=== PATIENT | female | born 1980 | race Caucasian/White ===

== ENCOUNTER 2022-03-05 11:26 | Outpatient (CLI) | payer MEDICAID, SELFPAY ==
[2022-03-05 14:00] LABS: Chloride* 107 mmol/L (96-114); Potassium* 3.7 mmol/L (3.6-5.1); Sodium* 140 mmol/L (135-149)
[2022-03-05 14:03] LABS: Blood Urea Nitrogen* 11 mg/dL (5-24); Carbon Dioxide* 22 mmol/L (20-32); Creatinine* 0.7 mg/dL (0.5-1.5); Estimated Glomerular Filt Rate 111 ml/min
[2022-03-05 14:04] LABS: Calcium* 8.8 mg/dL (8.4-10.6); Glucose* 108 mg/dL (60-115)
[2022-03-05 14:19] LABS: SARS PCR* POSITIVE SARS-CoV-2 (Negative)
== END 2022-03-05 11:27 | disposition home or self-care (01) ==
PROVIDERS: PCP Family Medicine; Visit Provider Nurse Practitioner Family
DX: U07.1 COVID-19 (principal); R50.9 Fever, unspecified; J02.9 Acute pharyngitis, unspecified; J11.1 Influenza due to unidentified influenza virus with other respiratory manifestations
CPT/HCPCS: 36415; 80048; 87635

== ENCOUNTER 2023-01-01 08:22 | Outpatient (CLI) | payer MEDICAID, SELFPAY | END 2023-01-01 08:23 | disposition home or self-care (01) | PROVIDERS: PCP Family Medicine; Referring Provider Family Medicine; Visit Provider Family Medicine | DX: Z00.00 Encounter for general adult medical examination without abnormal findings (principal); E66.9 Obesity, unspecified; E03.9 Hypothyroidism, unspecified; R53.83 Other fatigue; R73.01 Impaired fasting glucose; J45.30 Mild persistent asthma, uncomplicated; F41.9 Anxiety disorder, unspecified; M54.6 Pain in thoracic spine; F33.42 Major depressive disorder, recurrent, in full remission; G47.33 Obstructive sleep apnea (adult) (pediatric); G89.29 Other chronic pain; Z13.6 Encounter for screening for cardiovascular disorders | CPT/HCPCS: 80053; 80061; 84443 ==

== ENCOUNTER 2023-04-03 10:42 | Outpatient (CLI) | payer MEDICAID, SELFPAY ==
[2023-04-03 15:25] LABS: SARS PCR* Negative SARS-CoV-2 (Negative)
== END 2023-04-03 10:43 | disposition home or self-care (01) ==
LOC: KYNREF 10:43
PROVIDERS: PCP Family Medicine; Visit Provider Nurse Practitioner Family
DX: R50.9 Fever, unspecified (principal); R09.81 Nasal congestion
CPT/HCPCS: 87635

== ENCOUNTER 2023-04-16 13:53 | Outpatient (CLI) | payer MEDICAID, SELFPAY | END 2023-04-16 13:54 | disposition home or self-care (01) | PROVIDERS: PCP Family Medicine; Visit Provider Family Medicine | DX: E86.0 Dehydration (principal); E03.9 Hypothyroidism, unspecified; R53.83 Other fatigue; R11.10 Vomiting, unspecified | CPT/HCPCS: 80048; 84703 ==

== ENCOUNTER 2023-04-25 09:09 | Outpatient (CLI) | payer MEDICAID, SELFPAY | END 2023-04-25 09:10 | disposition home or self-care (01) | PROVIDERS: PCP Family Medicine; Visit Provider Nurse Practitioner Family | DX: I49.9 Cardiac arrhythmia, unspecified (principal); R53.83 Other fatigue; E03.9 Hypothyroidism, unspecified; E66.9 Obesity, unspecified; R42 Dizziness and giddiness | CPT/HCPCS: 80048; 84443; 85025 ==

== ENCOUNTER 2023-12-26 14:02 | Outpatient (CLI) | payer MEDICAID, SELFPAY ==
--- OUTSIDE RECORDS SUMMARY | 2023-12-26 14:11 | XMS_ITS | Clinical Summary ---
Author Organization [employer] [facility] Address [place], [place] [address] Care Team Providers Care Gluing Machine Operator Name Role Phone Unavailable Primary Care Provider Unavailabl e Allergies Active Allergy Reactions Criticality Noted Date Comments Fluticasone Propion-Salmeterol Rash 05/12 Iodinated Contrast Media 11/08/2010 Sulfa (Sulfonamide Antibiotics) 03/18 Medications Medication Sig Dispensed Refills Start Date End Date Status albuterol HFA (PROAIR HFA) 90 mcg/actuation inhalerIndications:Mi ld intermittent asthma, uncomplicated Inhale 2 Puffs by mouth every 6 hours if needed. 1 Inhaler 3 04/15/2017 Active triamcinolone 0.5% (ARISTOCORT) 0.5 % creamIndications:Rash Apply topically to affected area(s) 3 times daily. 454 g 07/18/2017 Active Active Problems Problem Noted Date Diagnosed Date Vaccine reaction 04/15/2017 Overview: Told not to have any more vaccines. 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 Hepatitis B Mild intermittent asthma 01/31/2009 Immunizations Name Administration Dates Next Due Hepatitis B, Unspecified 06/22/1998,05/22/1998 Family History Medical History Relation Name Comments Good Health Father Hypertension Mother Good Health Sister Relation Name Status Comments Father Alive Maternal Grandfather (Age 76) Mother Alive Paternal Grandmother (Age 78) [place] Sister Social History Tobacco Use Types Packs/Day Years Used Date Smoking Tobacco: Never Smokeless Tobacco: Never Tobacco Cessation:Counseling Given: Yes Alcohol Use Standard Drinks/Week Comments No 0 (1 standard drink = 0.6 oz pur e alcohol) Sex and Gender Information Value Date Recorded Sex Assigned at Not on file Gender Identity Not on file Sexual Orientation Not on file Obstetrics History Para Term AB IAB SAB Ectopic Multiple Livin g Live Births 5 3 2 1 1 1 3 2 Date Outcome GA Total Labor Labor/2nd/3rd Weight Sex Type Anes PTL Terri A1 A5 Name Clin Term Comments:System Genera emily. Please review and update details. SAB 005 36w 0d 15h 00m/ 2.72 kg (6 lb) M Vag Living marck 01/2008 Term 39w 0d 4h 00m/ 3.18 kg (7 lb) F Vag Living Carrie Comments:mild CP Last Filed Vital Signs Vital Sign Reading Time Taken Comments Blood Pressure 119/72 07/18/2017 9:33 AM PARTS REMOVER Pulse 71 07/18/2017 9:33 AM PARTS REMOVER Temperature 36.9 ??C (98.5 ??F) 07/18/2017 9:33 AM CS T Respiratory Rate 16 04/15/2017 7:55 AM CDT Oxygen Saturation 100% 07/18/2017 9:33 AM PARTS REMOVER Inhaled Oxygen Concentration - - Weight 88.8 kg (195 lb 12.8 oz) 07/18/2017 9:33 AM PARTS REMOVER Height 171.5 cm (5' 7.5) 04/15/2017 7:55 AM CDT Body Mass Index 30.21 04/15/2017 7:55 AM CDT Plan of Treatment Health Maintenance Due Date Last Done Comments Tdap 1990 Tetanus booster 1999 Depression screening for age 12+ 12/25/2017 12/25/2016, 07/18/2015 BMI (ht and wt on same day) for age 18+ 04/15/2018 04/15/2017, 11/07/2015, 10/31/2015, Additional history exists COVID-19 vaccine series (2022- season) 2023 Pap test for age 21-65 09/15/2023 , 09/14/2020, 11/07/2015, Additional history exists Influenza for age 9-49 02/15/2024 Hepatitis C screening for age 18-79 Completed 07/18/2015, 01/31/2009, 05/26/2007 HIV for age 15-65 Completed 10/31/2015, , 01/31/2009, Additional history exists Pneumococcal series for age 6-64 Aged Out No longer eligible based on patient's age to complete this topic Procedures Procedure Name Priority Date/Time Associated Diagnosis Comments DOCKMASTER THIN PREP PAP SCREEN IMAGED Routine 09/14/2020 1:35 PM CDT ANTI HIV 1/2 Routine 10/31/2015 11:55 AM CDT Encounter for supervision of other normal , first trimester ANTI HCV Routine 07/18/2015 9:39 AM PARTS REMOVER , unspecified gestational age from Last 3 Months or Most Recently Relevant to Health Maintenance Results * DOCKMASTER THIN PREP PAP SCREEN IMAGED (09/14/2020 1:35 PM CDT) Case Report Gynecologic Cytology Report ? Case: [id number] ? Authorizing Provider: ??Sunni Plasencia MD ??Collected: ? 09/14/2020 1335 ? Ordering Location: ? [facility] ?Received: ?09/15/2020 1003 ? First Screen: ?Yrn Mendoza ? Specimen: ?DOCKMASTER ThinPrep Vial Screening, Cervical/Vaginal ? 09/25/2020 8:39 AM CDT [facility] INTERPRETATION/ RESULT NEGATIVE FOR INTRAEPITHELIAL LESION OR MALIGNANCY (NIL) (none) 09/25/2020 8:39 AM CDT [facility] IMEN ADEQUACY Satisfactory for evaluation Endocervical component present Scant cellularity 09/25/2020 8:39 AM CDT [facility] HPV REQUEST HPV and PAP 09/25/2020 8:39 AM CDT [facility] Date of LMP 08/25/2020 09/25/2020 8:39 AM CDT [facility] Last Pap Date 11/07/2015 09/25/2020 8:39 AM CDT [facility] Additional Information 09/25/2020 8:39 AM CDT [facility] Comment: Interpreted at [facility] - [address] [place] [address] Automated Review Successful 09/25/2020 8:39 AM CDT [facility] Comment:Specimen processed s uccessfully by automated security rep device, ThinPrep Imaging System, [employer] ANCILLARY TESTING DOCKMASTER HPV Ordered, Please see separate report 09/25/2020 8:39 AM CDT [facility] Note The pap test is a screening technique, not a diagnostic procedure. It is used primarily to screen for squamous cancers and precursor lesions. Published studies have shown that it is subject to both false negative and false positive results. The pap test should not be used as the sole means to diagnose or exclude pre-malignant and malignant lesions. 09/25/2020 8:39 AM CDT [facility] Other (Cervical/Vagina l) 09/14/2020 1:35 PM CDT 09/15/2020 10:03 AM CDT Sunni Plasencia MD PATHOLOGY/CYTOLO GY [facility] [address] [place] [address], [place] * ANTI HIV 1/2 (10/31/2015 11:55 AM CDT) HIV-1/HIV-2 ANTIBODY Non-Reacti ve Non-Reacti ve 10/31/2015 8:12 PM CDT [facility] Blood specimen (specimen) BLOOD SPECIMEN / Unknown Venipuncture / Unknown 10/31/2015 11:55 AM CDT 10/31/2015 11:55 AM CDT Narrative [facility] - 10/31/2015 8:12 PM CDT HIV-1 p24 and HIV-1/HIV-2 Ab not detected Gabrielle Lawson NP SEND OUTS [facility] [address] [place] [address], [place] * ANTI HCV (07/18/2015 9:39 AM PARTS REMOVER) HEPATITIS C ANTIBODY Non-Reacti ve Non-Reacti ve 07/18/2015 5:53 PM PARTS REMOVER [facility] Blood specimen (specimen) BLOOD SPECIMEN / Unknown Venipuncture / Unknown 07/18/2015 9:39 AM PARTS REMOVER 07/18/2015 9:40 AM PARTS REMOVER Narrative [facility] - 07/18/2015 5:53 PM PARTS REMOVER Antibodies to HCV not detected; does not exclude the possibility of exposure to HCV. Anneliese [place] SEND OUTS [facility] [address] [place] [id number], [place] from Last 3 Months or Most Recently Relevant to Health Maintenance Sharlene [employer] 1980 [id number] [id number] Sharlene YOUNG [place] [employer] 1980 [address] [id number]
== END 2023-12-26 14:03 | disposition home or self-care (01) ==
PROVIDERS: PCP Family Medicine; Visit Provider Nurse Practitioner Family
DX: R53.83 Other fatigue (principal)
CPT/HCPCS: 80053; 82306; 82607; 84443; 84703; 85025; 85651; 86140

== ENCOUNTER 2024-01-15 12:52 | Outpatient (CLI) | payer MEDICAID, SELFPAY ==
--- OUTSIDE RECORDS SUMMARY | 2024-01-15 12:55 | XMS_ITS | Clinical Summary ---
Author Organization [employer] [facility] Address [place], [place] [address] Care Team Providers Care Welder Assembler Name Role Phone Unavailable Primary Care Provider [...] Comments Blood Pressure 119/72 07/18/2017 9:33 AM LOG PREPARER Pulse 71 07/18/2017 9:33 AM LOG PREPARER Temperature 36.9 ??C (98.5 ??F) 07/18/2017 9:33 AM CS T Respiratory Rate 16 04/15/2017 7:55 AM CDT Oxygen Saturation 100% 07/18/2017 9:33 AM LOG PREPARER Inhaled Oxygen Concentration - - Weight 88.8 kg (195 lb 12.8 oz) 07/18/2017 9:33 AM LOG PREPARER Height 171.5 cm (5' 7.5) 04/15/2017 7:55 [...] Procedure Name Priority Date/Time Associated Diagnosis Comments AIRCRAFT SYSTEMS REPAIRER THIN PREP PAP SCREEN IMAGED Routine 09/14/2020 1:35 PM CDT ANTI HIV 1/2 Routine 10/31/2015 11:55 AM CDT Encounter for supervision of other normal , first trimester ANTI HCV Routine 07/18/2015 9:39 AM LOG PREPARER , unspecified gestational age from Last 3 Months or Most Recently Relevant to Health Maintenance Results * AIRCRAFT SYSTEMS REPAIRER THIN PREP PAP SCREEN IMAGED (09/14/2020 1:35 PM CDT) Case Report Gynecologic Cytology Report ? Case: [id number] ? Authorizing Provider: ??Sunni Plasencia MD ??Collected: ? 09/14/2020 1335 ? Ordering Location: ? [facility] ?Received: ?09/15/2020 1003 ? First Screen: ?Yrn Mendoza ? Specimen: ?AIRCRAFT SYSTEMS REPAIRER ThinPrep Vial Screening, Cervical/Vaginal ? 09/25/2020 8:39 AM CDT [facility] INTERPRETATION/ RESULT NEGATIVE FOR INTRAEPITHELIAL LESION OR MALIGNANCY (NIL) (none) 09/25/2020 8:39 AM CDT [facility] IMEN ADEQUACY Satisfactory for evaluation Endocervical component present Scant cellularity 09/25/2020 8:39 AM CDT [facility] HPV REQUEST HPV and PAP 09/25/2020 8:39 AM CDT [facility] Date of LMP 08/25/2020 09/25/2020 8:39 AM CDT [facility] Last Pap Date 11/07/2015 09/25/2020 8:39 AM CDT [facility] Additional Information 09/25/2020 8:39 AM CDT [facility] Comment: Interpreted at [facility] - [address] [place] [id number] Automated Review Successful 09/25/2020 8:39 AM CDT [facility] Comment:Specimen processed s uccessfully by automated spray i painter device, ThinPrep Imaging System, [employer] ANCILLARY TESTING AIRCRAFT SYSTEMS REPAIRER HPV Ordered, Please see separate report 09/25/2020 8:39 AM CDT [facility] Note The pap test is a [...] and malignant lesions. 09/25/2020 8:39 AM CDT [facility] Other (Cervical/Vagina l) 09/14/2020 1:35 PM CDT 09/15/2020 10:03 AM CDT Sunni Plasencia MD PATHOLOGY/CYTOLO GY [facility] [address] [place] [address], [place] * ANTI HIV 1/2 (10/31/2015 11:55 AM CDT) HIV-1/HIV-2 ANTIBODY Non-Reacti ve Non-Reacti ve 10/31/2015 8:12 PM CDT [facility] Blood specimen (specimen) BLOOD SPECIMEN / Unknown Venipuncture / Unknown 10/31/2015 11:55 AM CDT 10/31/2015 11:55 AM CDT Narrative [facility] - 10/31/2015 8:12 PM CDT HIV-1 p24 and HIV-1/HIV-2 Ab not detected Gabrielle Lawson NP SEND OUTS [facility] [address] [place] [address], [place] * ANTI HCV (07/18/2015 9:39 AM LOG PREPARER) HEPATITIS C ANTIBODY Non-Reacti ve Non-Reacti ve 07/18/2015 5:53 PM LOG PREPARER [facility] Blood specimen (specimen) BLOOD SPECIMEN / Unknown Venipuncture / Unknown 07/18/2015 9:39 AM LOG PREPARER 07/18/2015 9:40 AM LOG PREPARER Narrative [facility] - 07/18/2015 5:53 PM LOG PREPARER Antibodies to HCV not detected; does not exclude the possibility of exposure to HCV. Anneliese [place] SEND OUTS [facility] [address] [place] [phone], [place] from Last 3 Months or Most Recently Relevant to Health Maintenance Sharlene [employer]NG [employer] Self 1980 [address] [id number] Sharlene YOUNG [place] [employer] 1980 [address] [id number]
--- NOTE | 2024-01-15 13:00 | CRLHL7_ITS ---
For Patients: As a result of the Century Cures Act, medical imaging exams and procedure reports are released immediately into your electronic medical record. You may view this report before your referring provider. If you have questions, please contact your health care provider. INDICATION: Excessive and frequent menstruation COMPARISON: none TECHNIQUE: 2D murray scale and color Doppler images were acquired of the pelvis using a transabdominal and transvaginal approach. FINDINGS: Sonographic images demonstrate a normal size and smooth outer contour of the uterus. Uterus measures 10.0 cm in length by 5.3 cm in AP diameter by 5.7 cm in transverse dimension. Multiple small cervical nabothian cysts are present. The endometrial lining measures 11 mm in composite thickness. The right ovary measures 2.9 x 1.2 x 1.7 cm in size and the left ovary is not visualized. The right ovary demonstrates normal arterial and venous blood flow on color Doppler analysis. There are no suspicious fluid collections within the cul-de-sac. IMPRESSION: Endometrial thickness 11 millimeters. No endometrial fluid or uterine fibroid. Dictated by Farshad Greene MD @ 01/16/2024 6:56:59 AM (Electronically Signed)
== END 2024-01-15 12:53 | disposition home or self-care (01) ==
LOC: US 12:53
PROVIDERS: PCP Family Medicine; Visit Provider Nurse Practitioner Family
DX: N92.0 Excessive and frequent menstruation with regular cycle (principal); R93.89 Abnormal findings on diagnostic imaging of other specified body structures
CPT/HCPCS: 76830; 76856

== ENCOUNTER 2024-02-09 14:00 | Outpatient (RCR) | payer MEDICAID, SELFPAY ==
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
== END 2024-06-08 23:59 | disposition home or self-care (01) ==
PROVIDERS: PCP Family Medicine; Visit Provider Obstetrics & Gynecology
DX: N39.3 Stress incontinence (female) (male) (principal); R27.8 Other lack of coordination; Z51.89 Encounter for other specified aftercare
CPT/HCPCS: 97110; 97140; 97162; 97535

== ENCOUNTER 2024-06-28 08:25 | Outpatient (CLI) | payer MEDICAID, SELFPAY | END 2024-06-28 08:26 | disposition home or self-care (01) | LOC: KYNREF 08:26 | PROVIDERS: PCP Nurse Practitioner Family; Visit Provider Nurse Practitioner Family | DX: Z13.220 Encounter for screening for lipoid disorders (principal) | CPT/HCPCS: 80061 ==

== ENCOUNTER 2024-09-14 14:51 | Outpatient (CLI) | payer MEDICAID, SELFPAY ==
--- NOTE | 2024-09-14 15:00 | CRLHL7_ITS ---
For Patients: As a result of the Century Cures Act, medical imaging exams and procedure reports are released immediately into your electronic medical record. You may view this report before your referring provider. If you have questions, please contact your health care provider. BILATERAL SCREENING MAMMOGRAM WITH COMPUTER-AIDED DETECTION AND TOMOSYNTHESIS TECHNIQUE: CC and MLO views were obtained. These mammographic images have been obtained using full-field digital technique. These mammographic images were interpreted with the benefit of computer-aided detection. Breast Tomosynthesis was used in this interpretation. COMPARISON FILM: 09/15/21, 09/26/21. FINDINGS: The breasts are heterogeneously dense, which may obscure small masses. IMPRESSION: There is no radiographic evidence for malignancy. ASSESSMENT: BI-RADS Category 1: Negative RECOMMENDATION: Routine screening mammogram in 1 year. A lay language report of this examination will be provided to the patient. Farshad Greene M.D. Diagnostic Radiologist [email or web address] SP/Dictated by: Farshad Greene MD @ 09/15/2024 10:30:00 AM (Electronically Signed)
== END 2024-09-14 14:52 | disposition home or self-care (01) ==
LOC: MAMMO 14:52
PROVIDERS: PCP Nurse Practitioner Family; Visit Provider Nurse Practitioner Family
DX: Z12.31 Encounter for screening mammogram for malignant neoplasm of breast (principal); R92.333 Mammographic heterogeneous density, bilateral breasts
CPT/HCPCS: 77063; 77067

== ENCOUNTER 2025-02-17 15:30 | Outpatient (CLI) | payer MEDICAID, SELFPAY | END 2025-02-17 15:31 | disposition home or self-care (01) | LOC: KYNREF 15:32 | PROVIDERS: PCP Nurse Practitioner Family; Visit Provider Nurse Practitioner Family | DX: R39.9 Unspecified symptoms and signs involving the genitourinary system (principal) | CPT/HCPCS: 81001; 87086 ==